=== PATIENT | male | born 1935 | race Caucasian/White ===

== ENCOUNTER 2021-10-10 04:40 | Inpatient (IN) ==
[2021-10-10] MEDS ORDERED: Naloxone 0.4 MG/ML INJ IVP PRN (07:27)
[2021-10-10] MEDS ORDERED: Acetaminophen 325 MG TABLET PO PRN (07:35)
[2021-10-10] MEDS ORDERED: Melatonin 3 MG TABLET PO PRN (07:35)
[2021-10-10] MEDS ORDERED: Ondansetron 4 MG/2 ML VIAL IVP PRN (07:35)
[2021-10-10] MEDS ORDERED: *HR* Dextrose 50 % in Water (Syg) 50 ML SYRINGE IVP PRN (07:59)
[2021-10-10] MEDS ORDERED: D5% in Water 1,000 ML IVC PRN (07:59)
[2021-10-10] MEDS ORDERED: Dextrose Gel 15 GM/37.5 ML TUBE PO PRN ×2 (07:59)
[2021-10-10] MEDS: Ipratropium/Albuterol Neb 3 ML IH SCH ×5 (08:07→23:52)
[2021-10-10] MEDS: cefTRIAXone 1,000 MG in 0.9 % Sodium Chloride 10 ML IVP SCH (08:58)
[2021-10-10] MEDS: Azithromycin 500 MG in 0.9 % Sodium Chloride 250 ML IVPB SCH (08:58)
[2021-10-10] MEDS: Insulin DETEMIR 100 UNIT/ML X5UNITS SUBQ SCH ×2 (09:05→20:13)
[2021-10-10] MEDS: Insulin LISPRO 300 UNITS/3 ML VIAL SUBQ SCH ×4 (09:06→20:13)
[2021-10-10 10:16] LABS: Troponin I 0.04 ng/mL (< 0.04)
[2021-10-10 12:08] LABS: Estimated Average Glucose 131 mg/dl; Hemoglobin A1C 6.2 %
[2021-10-10] MEDS: MethylPREDNISolone 40 MG/ML VIAL IVP SCH ×3 (12:27→23:40)
[2021-10-10] MEDS: 0.9 % Sodium Chloride 1,000 ML IVC SCH ×2 (17:26→20:27)
[2021-10-10] MEDS: GuaiFENesin Liq 200 MG/10 ML UDC PO PRN (21:30)
[2021-10-11] MEDS: Ipratropium/Albuterol Neb 3 ML IH SCH ×5 (03:51→20:19)
[2021-10-11] MEDS: 0.9 % Sodium Chloride 1,000 ML IVC SCH (04:16)
[2021-10-11] MEDS: *HR* Enoxaparin 40 MG/0.4 ML SYRINGE SQ SCH (05:15)
[2021-10-11] MEDS: MethylPREDNISolone 40 MG/ML VIAL IVP SCH (05:17)
[2021-10-11 06:37] LABS: Basophils % 0.4 %; Hematocrit 32.6 % (37.5-50.1); Hemoglobin 10.7 g/dL (12.9-16.9); Immature Granulocytes % 1.3 % (0-4); Lymphocytes # 0.4 K/mcL (0.6-4.6); Mean Corpuscular HGB Conc 32.8 g/dL (31.6-35.5); Mean Corpuscular Hemoglobin 28.5 pg (28.0-33.3); Mean Corpuscular Volume 86.7 fL (83.0-100.0); Mean Platelet Volume 11.8 fL (9.4-12.4); Monocytes # 0.4 K/mcL (0.0-1.3); Monocytes % 7.8 %; Neutrophils # 4.5 K/mcL (1.6-8.9); Platelet Count 121 K/mcL (140-400); Red Blood Count 3.76 M/mcL (4.19-5.50); Red Cell Distribution Width 13.9 % (11.5-14.5); Segmented Neutrophils % 83.5 %; White Blood Count 5.4 K/mcL (4.3-11.1)
[2021-10-11 07:02] LABS: Alanine Aminotransferase 19 Units/L (7-52); Albumin 3.4 g/dL (3.5-5.7); Albumin/Globulin Ratio 1.1 (1.1-2.2); Alkaline Phosphatase 69 Units/L (34-104); Aspartate Amino Transferase 31 Units/L (13-39); BUN/Creatinine Ratio 31 (6-26); Bilirubin,Total 0.4 mg/dL (0.3-1.0); Blood Urea Nitrogen 26 mg/dL (8-23); Calcium 8.7 mg/dL (8.6-10.3); Carbon Dioxide 20 mEq/L (23-29); Chloride 108 mEq/L (98-107); Glucose 339 mg/dL (70-105); Osmolality,Calculated 306 (280-300); Sodium 139 mEq/L (136-145); Total Protein 6.4 g/dL (6.4-8.9); eGFR For African Americans > 60 (> 60); eGFR For Non-African Americans > 60 (> 60)
[2021-10-11] MEDS: cefTRIAXone 1,000 MG in 0.9 % Sodium Chloride 10 ML IVP SCH (07:38)
[2021-10-11] MEDS: Azithromycin 500 MG in 0.9 % Sodium Chloride 250 ML IVPB SCH (07:39)
[2021-10-11] MEDS: Insulin DETEMIR 100 UNIT/ML X5UNITS SUBQ SCH ×2 (07:39→20:18)
[2021-10-11] MEDS: Insulin LISPRO 300 UNITS/3 ML VIAL SUBQ SCH ×4 (07:40→20:18)
[2021-10-11] MEDS ORDERED: Isovue-370 500 ML BOTTLE IVP ONE (09:41)
[2021-10-11] MEDS ORDERED: Perflutren Lipid Microsphere 1.3 ML in 0.9 % Sodium Chloride 8.7 ML IVP PRN (09:41)
[2021-10-11] MEDS: GuaiFENesin Liq 200 MG/10 ML UDC PO PRN (20:18)
[2021-10-12] MEDS: Ipratropium/Albuterol Neb 3 ML IH SCH ×4 (00:16→11:34)
[2021-10-12] MEDS: *HR* Enoxaparin 40 MG/0.4 ML SYRINGE SQ SCH (05:29)
[2021-10-12] MEDS: GuaiFENesin Liq 200 MG/10 ML UDC PO PRN ×2 (05:29→12:10)
[2021-10-12 06:10] LABS: Basophils % 0.3 %; Hematocrit 32.4 % (37.5-50.1); Hemoglobin 10.6 g/dL (12.9-16.9); Immature Granulocytes % 1.7 % (0-4); Lymphocytes # 1.3 K/mcL (0.6-4.6); Lymphocytes % 20.3 %; Mean Corpuscular HGB Conc 32.7 g/dL (31.6-35.5); Mean Corpuscular Hemoglobin 28.7 pg (28.0-33.3); Mean Corpuscular Volume 87.8 fL (83.0-100.0); Mean Platelet Volume 10.6 fL (9.4-12.4); Monocytes # 0.5 K/mcL (0.0-1.3); Monocytes % 7.6 %; Neutrophils # 4.6 K/mcL (1.6-8.9); Platelet Count 125 K/mcL (140-400); Red Blood Count 3.69 M/mcL (4.19-5.50); Red Cell Distribution Width 14.4 % (11.5-14.5); Segmented Neutrophils % 70.1 %; White Blood Count 6.6 K/mcL (4.3-11.1)
[2021-10-12 06:33] LABS: BUN/Creatinine Ratio 27 (6-26); Blood Urea Nitrogen 22 mg/dL (8-23); Calcium 8.5 mg/dL (8.6-10.3); Carbon Dioxide 24 mEq/L (23-29); Chloride 108 mEq/L (98-107); Glucose 143 mg/dL (70-105); Osmolality,Calculated 294 (280-300); Potassium 3.9 mEq/L (3.5-5.1); Sodium 139 mEq/L (136-145); eGFR For African Americans > 60 (> 60); eGFR For Non-African Americans > 60 (> 60)
[2021-10-12 06:44] VITALS: TEMP 97.5
[2021-10-12] MEDS: cefTRIAXone 1,000 MG in 0.9 % Sodium Chloride 10 ML IVP SCH (08:43)
[2021-10-12] MEDS: Azithromycin 500 MG in 0.9 % Sodium Chloride 250 ML IVPB SCH (08:44)
[2021-10-12] MEDS: Insulin LISPRO 300 UNITS/3 ML VIAL SUBQ SCH ×2 (08:47→12:11)
[2021-10-12] MEDS: Insulin DETEMIR 100 UNIT/ML X5UNITS SUBQ SCH (08:48)
[2021-10-12] MEDS ORDERED: predniSONE 20 MG TABLET PO SCH (09:00)
[2021-10-12] MEDS ORDERED: amLODIPine 5 MG TABLET PO SCH (09:00)
[2021-10-12 12:22] VITALS: BP 146/58; PULSE 92; O2SAT 92
== END 2021-10-12 15:10 | disposition home or self-care (01) | DRG 871 ==
LOC: 3BNU → SUATTDRO 06:44
PROVIDERS: ADMIT Hospitalist; ATTEND Registered Nurse